=== PATIENT | female | born 1950 | race Caucasian/White ===

== ENCOUNTER 2023-07-05 07:30 | Inpatient (IN) ==
[~2023-07-05 07:30] MED LIST: Buffered Lidocaine 1% SYRIN 1 ml INTRADERM ONE; Famotidine IV 10 MG/ML 2 ml VIAL (20 mg) IV ONE; Lactated Ringers 1000 ml BAG 1,000 ML IV SCH
[2023-07-05] MEDS ORDERED: Tranexamic Acid 1 GM/100ML BAG 2,000 MG/200 ML BAG IV ONE (10:14)
[2023-07-05] MEDS ORDERED: Famotidine IV 10 MG/ML 2 ml VIAL (20 mg) ONE (10:15)
[2023-07-05] MEDS ORDERED: ceFAZolin 2 GM in NS PREMIX 2 GM/100 ML BAG IVPB ONE (10:15)
[2023-07-05 10:53] LABS: Activated Partial Thrombo Time 30.6 seconds (26.0-38.0); INR 1.16 (0.83-1.13)
[2023-07-05 11:02] LABS: Rapid COVID-19 Molecular Undetected (Undetected)
[2023-07-05] MEDS ORDERED: ROPIVACAINE 5 MG/ML 30 ML BTL (0.5%) ONE (11:51)
[2023-07-05] MEDS ORDERED: Ondansetron 4 mg VIAL 2 MG/ML 2 ml VIAL ONE ×3 (12:20→17:45)
[2023-07-05] MEDS ORDERED: Lidocaine 2% PF 5 ML VIAL ONE (12:20)
[2023-07-05] MEDS ORDERED: Propofol 10 MG/ML 20 ML BTL ONE (12:20)
[2023-07-05] MEDS ORDERED: Dexamethasone IV 4 MG/ML VIAL 1 ml VIAL ONE (12:20)
[2023-07-05] MEDS ORDERED: Midazolam 2 mg/2 ml VIAL 1 mg/ml 2 ml VIAL (2 mg) ONE (12:21)
[2023-07-05] MEDS ORDERED: Rocuronium 50 mg VIAL 10 mg/ml 5 ml VIAL (50 mg) ONE (12:21)
[2023-07-05] MEDS ORDERED: fentaNYL 100 mcg/2 ml 50 MCG/ML VIAL ONE ×3 (12:21→16:26)
[2023-07-05] MEDS ORDERED: Naloxone 0.4 mg VIAL 0.4 mg/ml 1 ml VIAL IV PRN (13:13)
[2023-07-05] MEDS ORDERED: fentaNYL 100 mcg/2 ml 50 MCG/ML VIAL IV PRN (13:13)
[2023-07-05] MEDS ORDERED: HYDROmorphone 1 MG/1 ML SYRINGE IV PRN (13:13)
[2023-07-05] MEDS ORDERED: Phenylephrine 40 mcg/mL 10mL (400mcg) SYRINGE ONE (13:15)
[2023-07-05] MEDS ORDERED: Acetaminophen IV 1 GM/100ML 1,000 MG/100 ML BAG IV ONE (13:19)
[2023-07-05] MEDS ORDERED: Ondansetron ODT 4 mg TAB 4 MG TAB PO PRN (13:52)
[2023-07-05] MEDS ORDERED: Magnesium Hydroxide LIQ 30 ML UDC PO PRN (13:52)
[2023-07-05] MEDS ORDERED: Lactulose 30 ml UDC PO PRN (13:52)
[2023-07-05] MEDS ORDERED: Ondansetron 4 mg VIAL 2 MG/ML 2 ml VIAL IV PRN ×2 (13:52→17:39)
[2023-07-05] MEDS ORDERED: Morphine 2 MG/ML SYRINGE IV PRN (14:12)
[2023-07-05] MEDS ORDERED: HYDROmorphone 0.5 MG/0.5 ML SYRINGE ONE (14:42)
[2023-07-05] MEDS ORDERED: Haloperidol 5 mg/ml SDV IV/IM 5 MG/ML AMP ONE (17:39)
[2023-07-05] MEDS ORDERED: Haloperidol 5 mg/ml SDV IV/IM 5 MG/ML AMP IV SLOW PU PRN (17:39)
[2023-07-05] MEDS: Lactated Ringers 1000 ml BAG 1,000 ML IV SCH (19:50)
[2023-07-05] MEDS: Magnesium Hydroxide LIQ 30 ML UDC PO SCH (20:15)
[2023-07-05] MEDS: ceFAZolin 1 GM ADVAN 1 GM in NS 0.9% 50 ML 50 ML IVPB SCH (22:11)
[2023-07-06] MEDS: ceFAZolin 1 GM ADVAN 1 GM in NS 0.9% 50 ML 50 ML IVPB SCH ×2 (04:59→12:48)
[2023-07-06] MEDS: Lactated Ringers 1000 ml BAG 1,000 ML IV SCH (06:17)
[2023-07-06 07:13] LABS: Hematocrit 36.8 % (35-45); Hemoglobin 12.4 g/dL (11.5-14.3); Mean Platelet Volume 8.9 fL (7.5-11.2); Platelet Count 189 10^3/uL (150-450)
[2023-07-06 07:17] LABS: Calcium 8.5 mg/dL (8.6-10.3); Creatinine, Serum 1.11 mg/dL (0.51-0.95); Potassium 4.6 mmol/L (3.5-5.0); eGFR CKD-EPI 53.1 (>60)
[2023-07-06] MEDS: Magnesium Hydroxide LIQ 30 ML UDC PO SCH (08:45)
[2023-07-06] MEDS ORDERED: Vitamin THERAPEUTIC TAB PO SCH (09:00)
[2023-07-06 10:32] VITALS: BP 104/67
== END 2023-07-06 13:45 | disposition home or self-care (01) | DRG 470 ==
LOC: AA 09:54 → OBSVTOIN 13:52 → INTOOBSV 13:52
PROVIDERS: ADMIT Orthopaedic Surgery Adult Reconstructive Orthopaedic Surgery; ATTEND Orthopaedic Surgery Adult Reconstructive Orthopaedic Surgery